=== PATIENT | male | born 1935 | race Caucasian/White ===

== ENCOUNTER → 2021-03-24 | Outpatient (CLI) | payer OTHER ==
[~2021-03-24] MED LIST: ASPIRIN81 M2 PO; CHOLEST OFF PL450 MG PO; FISH OIL 1,001000 M1 PO; GLUCOSAMINE &1 EAC1; IRON; L-LYSINE500 M1 PO; LOSARTAN-HCTZ1 EAC2 PO; MAGNESIUM250 M1 PO; MULTIVITAMINS; NIACIN 500 MG500 M1 PO; NORVASC 5 MG TAB5 MG PO; PENTOXIFYLLINE400 MG PO; PRILOSEC40 MG PO; TRIGLIDE160 M1 PO
== END ==
LOC: M.RAD 03-23 10:00
PROVIDERS: ATTEND Internal Medicine Gastroenterology
DX: R13.10 Dysphagia, unspecified (principal)